=== PATIENT | male | born 1945 | race Caucasian/White ===

== ENCOUNTER 2022-11-09 02:14 | Emergency (ER) | payer OTHER, MEDICARE ==
[~2022-11-09] VITALS: Ht 182.9 cm; Wt 95.5 kg
[2022-11-09] MEDS ORDERED: LIDOcaine 2% 10ml TOPICAL JELLY (Urojet) MM ONE (02:50)
[2022-11-09] MEDS ORDERED: LIDOcaine 2% 10ml TOPICAL JELLY (Urojet) TP ONE (03:15)
[2022-11-09] MEDS ORDERED: ciprofloxacin 250mg tablet PO ONE (03:20)
[2022-11-09] MEDS ORDERED: CIPR-260 PO (03:22)
[2022-11-09 03:53] VITALS: BP 139/63
== END 2022-11-09 03:54 | disposition home or self-care (01) ==
LOC: ER 02:15
DX: N41.9 Inflammatory disease of prostate, unspecified (principal); N13.9 Obstructive and reflux uropathy, unspecified
CPT/HCPCS: 51702; 99284; A4340